=== PATIENT | male | born 1985 | race African-American/Black ===

== ENCOUNTER 2019-06-09 13:16 | Inpatient (IN) | payer OTHER ==
[2019-06-09 13:57] VITALS: BMI 19.0
--- NOTE | 2019-06-09 16:53 | HP ---
CIWA Score Nausea/Vomitin-No Nausea/No Vomiting Muscle Tremors: None Anxiety: 1-Mildly Anxious Agitation: 1-Slight > Activity Paroxysmal Sweats: No Perspiration Orientation: 0-Oriented Tacttile Disturbances: 0-None Auditory Disturbances: 0-None Visual Disturbances: 0-None Headache: 0-None Present CIWA-Ar Total Score: 2 - Admission Criteria OASAS Guidelines: Admission for Medically Managed Detox: Requires at least one of the followin. CIWA greater than 12 2. Seizures within the past 24 hours 3. Delirium tremens within the past 24 hours 4. Hallucinations within the past 24 hours 5. Acute intervention needed for co occurring medical disorder 6. Acute intervention needed for co occurring psychiatric disorder 7. Severe withdrawal that cannot be handled at a lower level of care (continued vomiting, continued diarrhea, abnormal vital signs) requiring intravenous medication and/or fluids 8. Patient presents the following: None of the above Admission Criteria Met: Admission criteria not met Admission ROS [facility] Chief Complaint: Dayday Bailey is a 33 year old male presenting for methamphetamine detox. Allergies/Adverse Reactions: Allergies Allergy/AdvReac Type Severity Reaction Status Date / Time No Known Allergies Allergy Verified 06/09/19 13:50 History of Present Illness: Dayday Bailey is a 33 year old male presenting for methamphetamine detox. Methamphetamine: 60$ worth/day. Last use was several days before. Endorses IVDU. Has been using for the last year. Withdrawal symptoms: gets anxiety. Cannabis: variable amount. Alcohol: states has 2 cans of beer when he is not using methamphetamine. Sister took the patient to the ER at [place] since he was "still high when I saw her". Denies detox or rehab in the past. States would be willing to go to rehab now to abstain from using methamphetamine. Medical History: hemorrhoids Psychiatric History: denies Surgical History: denies Medications: denies Smoking: denies Social: homeless, [address]. 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 In contact with family they know he is present at this facility. Patient in need of social work program coordinator, inpatient rehab for his methamphetamine use. Currently homeless. Counseled to attend meetings, journal about his experiences, eating correctly. Patient acknowledges and states he will work on his addiction. Exam Limitations: No Limitations - Ebola screening Have you traveled outside of the country in the last 21 days: No Have you had contact with anyone from an Ebola affected area: No Do you have a fever: No - Review of Systems Constitutional: Chills, Loss of Appetite EENT: reports: Other (rhinnorhea) Respiratory: reports: No Symptoms reported Cardiac: reports: No Symptoms Reported GI: reports: Constipated : reports: No Symptoms Reported Musculoskeletal: reports: No Symptoms Reported Integumentary: reports: No Symptoms Reported Neuro: reports: No Symptoms reported Endocrine: reports: No Symptoms Reported Hematology: reports: No Symptoms Reported Psychiatric: reports: Judgement Intact, Orientated x3, Anxious Patient History - Patient Medical History Hx Anemia: No Hx Asthma: No Hx Chronic Obstructive Pulmonary Disease (COPD): No Hx Cancer: No Hx Cardiac Disorders: No Hx Congestive Heart Failure: No Hx Hypertension: No Hx Hypercholesterolemia: No Hx Pacemaker: No HX Cerebrovascular Accident: No Hx Seizures: No Hx Dementia: No Hx Diabetes: No Hx Gastrointestinal Disorders: Yes (hemorrhoids) Hx Liver Disease: No Hx Genitourinary Disorders: No Hx Sexually Transmitted Disorders: No Hx Renal Disease (ESRD): No Hx Thyroid Disease: No Hx Human Immunodeficiency Virus (HIV): No Hx Hepatitis C: No Hx Depression: No Hx Suicide Attempt: No Hx Bipolar Disorder: No Hx Schizophrenia: No - Patient Surgical History Past Surgical History: No Hx Neurologic Surgery: No Hx Cataract Extraction: No Hx Cardiac Surgery: No Hx Lung Surgery: No Hx Breast Surgery: No Hx Breast Biopsy: No Hx Abdominal Surgery: No Hx Appendectomy: No Hx Cholecystectomy: No Hx Genitourinary Surgery: No Hx Section: No Hx Orthopedic Surgery: No - PPD History Previous Implant?: No Implanted On [facility] Admission?: No PPD to be Administered?: Yes - Smoking Cessation Smoking history: Never smoked Have you smoked in the past 12 months: No - Substances abused Alcohol Other (specify): BEER Substance route: Oral Frequency: Daily Amount used: 2 CANS BEER Age of first use: 17 Date of last use: 06/06/19 Non-Rx Methadone Substance route: Injection Frequency: 1-2 times per week Amount used: 4 ML Age of first use: 33 Date of last use: 06/07/19 Admission Physical Exam BHS - Vital Signs Vital Signs: Vital Signs - 24 hr 06/09/19 13:47 Temperature 97 F L Pulse Rate 76 Respiratory 18 Rate Blood Pressure 141/93 - Physical General Appearance: Yes: No Apparent Distress, Appropriately Dressed HEENTM: Yes: EOMI, Normal ENT Inspection, Normocephalic, Normal Voice, DESIRAE Respiratory: Yes: Chest Non-Tender, Lungs Clear, Normal Breath Sounds, No Respiratory Distress, No Accessory Muscle Use Neck: Yes: No masses,lesions,Nodules, Trachea in good position Breast: Yes: Breast Exam Deferred Cardiology: Yes: Regular Rhythm, Regular Rate, S1, S2 Abdominal: Yes: Normal Bowel Sounds, Non Tender, Flat, Soft Back: Yes: Normal Inspection Musculoskeletal: Yes: full range of Motion, Gait Steady Extremities: Yes: Normal Capillary Refill, Normal Inspection, Normal Range of Motion, Non-Tender Neurological: Yes: 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 NML intact, Fully Oriented, Alert, Motor Strength 5/5, Normal Mood/Affect, Normal Response Integumentary: Yes: Normal Color, Dry, Warm, Track [place] (noted on bilateral AC) - Diagnostic (1) Alcohol abuse Current Visit: Yes Status: Acute (2) Cannabis abuse Current Visit: Yes Status: Acute (3) Methamphetamine abuse Current Visit: Yes Status: Acute Cleared for Admission [facility] - Detox or Rehab [facility] Level of Care: Observation Bed Detox Regimen/Protocol: Not Applicable Breathalyzer - Breathalyzer Breathalyzer: 0 Urine Drug Screen - Test Device Lot number: [id number] Expiration date: 02/07/21 - Control Is test valid?: Yes - Results Drug screen NEGATIVE: Yes Urine drug screen results: THC-Marijuana, MET-Methamphetamine, AMP-Amphetamines , MDMA-Ecstasy Inpatient Rehab Admission - Rehab Decision to Admit Inpatient rehab admission?: Yes - Initial Determination Are CD services needed?: Yes Free of communicable disease: Yes Not in need of hospitalization: Yes - Rehab Admission Criteria Previous failed treatment: Yes Poor recovery environment: Yes Comorbidities: Yes Lacks judgement: Yes Patient is meeting Inpatient Rehab admission criteria:: Yes (needs social work program coordinator, homeless, and inpatient rehab)
[2019-06-09] MEDS ORDERED: LOPERAMIDE HCL 2 MG CAPSULE PO PRN (17:27)
[2019-06-09] MEDS ORDERED: P-EPHED 60MG/TRIPROLIDI 2.5MG TABLET PO PRN (17:27)
[2019-06-09] MEDS ORDERED: ACETAMINOPHEN 325 MG TABLET (FP) PO PRN (17:27)
[2019-06-09] MEDS ORDERED: hydrOXYzine PAMOATE 50 MG CAPSULE (FP) PO PRN (17:27)
[2019-06-09] MEDS ORDERED: MENTHOL/PHENOL 1 EACH UD MM PRN (17:27)
[2019-06-09] MEDS ORDERED: MAGNESIUM HYDROX 2400MG/30ML ORAL SUSPENSION 30 ML CUP PO PRN (17:27)
[2019-06-09] MEDS ORDERED: MAGNESIUM CITRATE 300 ML BOTTLE PO PRN (17:27)
[2019-06-09] MEDS ORDERED: IBUPROFEN 400 MG TABLET (FP) PO PRN (17:27)
[2019-06-09] MEDS ORDERED: MAG HYDROX/AL HYDROX/SIMETH 30 ML UNIT-DOSE CUP PO PRN (17:27)
[2019-06-09] MEDS ORDERED: guaiFENesin 200 MG/10 ML 10 ML UNIT-DOSE CUPS PO PRN (17:27)
[2019-06-09] MEDS ORDERED: cloNIDine HCL 0.1 MG TABLET PO PRN (17:28)
[2019-06-09] MEDS ORDERED: TUBERCULIN PPD 5 TU/0.1ML VIAL ID ONE (20:54)
[2019-06-09] MEDS: THIAMINE HCL 100 MG TABLET (FP) PO SCH (22:01)
[2019-06-09] MEDS: MELATONIN 5 MG TABLETS PO PRN (22:01)
[2019-06-10] MEDS: PRENATAL VITAMINS W/ FOLIC ACID TABLET (FP) PO SCH (11:13)
[2019-06-10 12:11] LABS: HEMATOCRIT 39.1 % (35.4-49); HEMOGLOBIN 12.7 GM/dL (11.7-16.9); MCHC 32.4 g/dl (32.0-35.9); MEAN CELL VOLUME 92.8 fl (80-96); PLATELET COUNT 203 K/MM3 (134-434); RBC 4.21 M/mm3 (4.00-5.60); RDW 13.4 % (11.9-15.9); WHITE BLOOD COUNT 4.3 K/mm3 (4.0-10.0)
[2019-06-10 12:34] LABS: ALBUMIN 3.3 g/dl (3.4-5.0); BILIRUBIN,TOTAL 0.6 mg/dL (0.2-1); BLOOD UREA NITROGEN 11.8 mg/dL (7-18); CREATININE 1.1 mg/dL (0.55-1.3); POTASSIUM 4.1 mmol/L (3.5-5.1)
[2019-06-10 13:22] LABS: SICKLE CELL SCREEN NEGATIVE (NEGATIVE)
[2019-06-10] MEDS: THIAMINE HCL 100 MG TABLET (FP) PO SCH (22:14)
[2019-06-10] MEDS: MELATONIN 5 MG TABLETS PO PRN (22:14)
[2019-06-11] MEDS: PRENATAL VITAMINS W/ FOLIC ACID TABLET (FP) PO SCH (10:57)
[2019-06-11] MEDS: THIAMINE HCL 100 MG TABLET (FP) PO SCH (21:58)
[2019-06-11] MEDS: MELATONIN 5 MG TABLETS PO PRN (21:59)
[2019-06-12] MEDS: PRENATAL VITAMINS W/ FOLIC ACID TABLET (FP) PO SCH (10:58)
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
[2019-06-12] MEDS: THIAMINE HCL 100 MG TABLET (FP) PO SCH (22:19)
[2019-06-13 06:53] VITALS: BP 126/82; PULSE 80; TEMP 97.7
--- NOTE | 2019-06-13 10:24 | DS ---
[facility] Rehab Discharge Summary - [facility] Rehab Discharge Summary Admission Date: 06/09/19 Discharge Date: 06/13/19 - History Present History: Alcohol dependence, Cannabis dependence Additional Comments: Pt is a 33 y/o male with a hx of substance use disorder discharged today. 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 Pertinent Past History: Hx Hemorrhoids Hx Drug induced Psychosis - Discharge Physical Exam Vital Signs: Vital Signs Temperature 97.7 F 06/13/19 06:52 Pulse Rate 80 06/13/19 06:52 Respiratory Rate 16 06/13/19 06:52 Blood Pressure 126/82 06/13/19 06:52 O2 Sat by Pulse Oximetry (%) Alert o x 3 nad oob with steady gait cardiac:s1 s2,rrr lungs:cta,abe. Abdomen:soft,+bs,nt,nd Extremities/Skin:No edema,Full ROM, skin intact Pertinent Admission Physical Exam Findings: Laboratory Tests 06/10/19 06/10/19 06/10/19 08:10 08:10 08:10 WBC 4.3 RBC 4.21 Hgb 12.7 Hct 39.1 MCV 92.8 MCH 30.0 MCHC 32.4 RDW 13.4 Plt Count 203 MPV 10.0 Sickle Cell Screen Negative Sodium 142 Potassium 4.1 Chloride 107 Carbon Dioxide 27 Anion Gap 7 L BUN 11.8 Creatinine 1.1 Est GFR (CKD-EPI)AfAm 103.13 Est GFR (CKD-EPI)NonAf 88.98 Random Glucose 82 Calcium 8.0 L Total Bilirubin 0.6 AST 17 ALT 20 Alkaline Phosphatase 104 Total Protein 7.0 Albumin 3.3 L Urine Color Urine Appearance Urine pH Ur Specific [place] Urine Protein Urine Glucose (UA) Urine Ketones Urine Blood Urine Nitrite Urine Bilirubin Urine Urobilinogen Ur Leukocyte Esterase Urine WBC (Auto) Urine RBC (Auto) Urine Casts (Auto) U Pathogenic Cast Auto U Epithel Cells (Auto) U Sm Round Cell (Auto) Urine Crystals (Auto) Urine Bacteria (Auto) Urine Yeast (Auto) RPR Titer Nonreactive Hep C Ab Diagnostic HIV 1&2 Antibody Screen HIV P24 Antigen 06/10/19 06/10/19 06/10/19 08:10 08:10 13:15 WBC RBC Hgb Hct MCV MCH MCHC RDW Plt Count MPV Sickle Cell Screen Sodium Potassium Chloride Carbon Dioxide Anion Gap BUN Creatinine Est GFR (CKD-EPI)AfAm Est GFR (CKD-EPI)NonAf Random Glucose Calcium Total Bilirubin AST ALT Alkaline Phosphatase Total Protein Albumin Urine Color Cancelled Urine Appearance Cancelled Urine pH Cancelled Ur Specific [place] Cancelled Urine Protein Cancelled Urine Glucose (UA) Cancelled Urine Ketones Cancelled Urine Blood Cancelled Urine Nitrite Cancelled Urine Bilirubin Cancelled Urine Urobilinogen Cancelled Ur Leukocyte Esterase Cancelled Urine WBC (Auto) Cancelled Urine RBC (Auto) Cancelled Urine Casts (Auto) Cancelled U Pathogenic Cast Auto Cancelled U Epithel Cells (Auto) Cancelled U Sm Round Cell (Auto) Cancelled Urine Crystals (Auto) Cancelled Urine Bacteria (Auto) Cancelled Urine Yeast (Auto) Cancelled RPR Titer Hep C Ab Diagnostic 0.1 HIV 1&2 Antibody Screen Negative HIV P24 Antigen Negative Unremarkable/Status unchanged from admission - Treatment Discharge Condition: Discharge condition good Hospital Course: Rehabilitated safely and responded well CD aftercare referral accepted - Medication Discharge Medications: Ambulatory Orders NK [No Known Home Medication] 06/09/19 - Medication-Assisted Treatment (MAT) Medication-Assisted Treatment (MAT): No - Discharge Instructions Diet, activity, other medical instructions: Diet:Regular Activity:oob ad tana Other medical instructions:Folow up with CD aftercare recommendations to [place], [place]/[facility] for Follow up with primary care/mental health. - Diagnosis (1) Alcohol abuse Status: Chronic (2) Cannabis abuse Status: Chronic (3) Hemorrhoid Status: Chronic Qualifiers: Hemorrhoid type: unspecified Qualified Code(s): K64.9 - Unspecified hemorrhoids - Follow-up Referral Minutes to complete discharge: 20 - AMA Did Patient Leave Against Medical Advice: No Additional Comments: Pt met with
[2019-06-13] MEDS: PRENATAL VITAMINS W/ FOLIC ACID TABLET (FP) PO SCH (11:08)
== END 2019-06-13 10:45 | disposition home or self-care (01) | DRG 772 ==
LOC: YASAS 13:16 → Y5N 18:08
PROVIDERS: ADMIT Neuromusculoskeletal Medicine & OMM; ATTEND Neuromusculoskeletal Medicine & OMM
PROC: HZ42ZZZ Group Counseling for Substance Abuse Treatment, Cognitive-Behavioral (ICD-10-PCS; principal; 2019-06-09)
DX: F10.20 Alcohol dependence, uncomplicated (principal); F12.20 Cannabis dependence, uncomplicated; F15.10 Other stimulant abuse, uncomplicated; F17.210 Nicotine dependence, cigarettes, uncomplicated; F19.259 Other psychoactive substance dependence with psychoactive substance-induced psychotic disorder, unspecified; K64.9 Unspecified hemorrhoids
CPT/HCPCS: 36415; 80053; 81003; 85027; 85660; 86593; 86803; 87389